=== PATIENT | female | born 1960 | race Caucasian/White ===

== ENCOUNTER 2018-12-18 05:37 | Outpatient (CLI) | payer BC ==
[~2018-12-18] VITALS: Ht 162.6 cm; Wt 88.5 kg
[2018-12-18] MEDS ORDERED: ASCO10006 PO (10:15)
[2018-12-18] MEDS ORDERED: OMG1KC PO (10:15)
[2018-12-18] MEDS ORDERED: MV-M1TAB20 PO (10:15)
[2018-12-18] MEDS ORDERED: ALPR0.254 PO (10:15)
[2018-12-18] MEDS ORDERED: LISI10TA2 PO (10:15)
[2018-12-18] MEDS ORDERED: CETI10TA4 PO (10:15)
[2018-12-18] MEDS ORDERED: GARL10002 PO (10:15)
[2018-12-18] MEDS ORDERED: CINN500C2 PO (10:15)
[2018-12-18] MEDS ORDERED: CRAN500T2 PO (10:15)
[2018-12-18] MEDS ORDERED: ASPI-586 PO (10:15)
[2018-12-18] MEDS ORDERED: MULT-141 PO (10:15)
[2018-12-18] MEDS ORDERED: METO-333 PO (10:15)
[2018-12-18] MEDS ORDERED: PARO20TA5 PO (10:15)
[2018-12-18] MEDS ORDERED: PSEU30TA35 PO (10:15)
== END 2018-12-18 10:24 | disposition home or self-care (01) ==
LOC: PREOP 05:37
PROVIDERS: ATTEND Surgery
DX: Z01.818 Encounter for other preprocedural examination (principal)

== ENCOUNTER 2018-12-24 06:55 | Day surgery (SDC) | payer BC ==
[~2018-12-24] VITALS: Ht 162.6 cm; Wt 88.5 kg
[~2018-12-24 06:55] MED LIST: ALPR0.254 PO; ASCO10006 PO; ASPI-586 PO; CETI10TA4 PO; CINN500C2 PO; CRAN500T2 PO; GARL10002 PO; LISI10TA2 PO; METO-333 PO; MULT-141 PO; MV-M1TAB20 PO; OMG1KC PO; PARO20TA5 PO; PSEU30TA35 PO
[2018-12-24] MEDS: LACTATED RINGERS 1,000 ML IV PRN ×3 (07:20→11:13)
[2018-12-24 07:28] LABS: BASOPHILS # (AUTO) 0.1 10^3/uL (0.0-0.1); BASOPHILS % (AUTO) 1 % (0-10); EOSINOPHILS # (AUTO) 0.2 10^3/uL (0.0-0.3); EOSINOPHILS % (AUTO) 3 % (0-10); HEMATOCRIT 41 % (35-52); HEMOGLOBIN 13.6 G/DL (11.5-16.0); LYMPHOCYTES # (AUTO) 1.9 X 10^3 (1.0-4.0); LYMPHOCYTES % (AUTO) 23 % (12-44); MEAN CORPUSCULAR HEMOGLOBIN 30 PG (25-34); MEAN CORPUSCULAR HGB CONC 33 G/DL (32-36); MEAN CORPUSCULAR VOLUME 92 FL (80-99); MONOCYTES # (AUTO) 0.7 X 10^3 (0.0-1.0); MONOCYTES % (AUTO) 9 % (0-12); NEUTROPHILS # (AUTO) 5.5 X 10^3 (1.8-7.8); NEUTROPHILS % (AUTO) 66 % (42-75); PLATELET COUNT 207 10^3/uL (130-400); RED CELL DISTRIBUTION WIDTH 13.9 % (10.0-14.5); WHITE BLOOD COUNT 8.4 10^3/uL (4.3-11.0)
[2018-12-24 07:30] VITALS: BP 144/91
[2018-12-24] MEDS ORDERED: ceFAZolin 2 GM IV Premixed 50 ML IV ONE (07:30)
[2018-12-24] MEDS ORDERED: proPOfol 200 MG/20 ML (DIPRIVAN) VIAL IV ONE (07:31)
[2018-12-24] MEDS ORDERED: ROCURONIUM 10 MG/ML 5 ML SYRINGE IV ONE ×2 (07:31→10:05)
[2018-12-24] MEDS ORDERED: LIDOCAINE PF 2% 5 ML (XYLOCAINE) VIAL ONE (07:31)
[2018-12-24] MEDS ORDERED: ONDANSETRON 4 MG/2 ML (SDV) Z0FRAN ONE (07:31)
[2018-12-24] MEDS ORDERED: SEVOFLURANE (ULTANE) 15 ML INHAL SOLN ONE ×7 (07:31→11:20)
[2018-12-24] MEDS ORDERED: DEXAMETHASONE 10 MG/ML (DECADRON) 1 ML VIAL ONE (07:31)
[2018-12-24] MEDS ORDERED: BUP/EPI 0.5% 1:200,000 (SENSORCAINE) 30 ML VIAL ONE (07:32)
[2018-12-24] MEDS ORDERED: MIDAZOLAM 2 MG/2 ML (VERSED) VIAL ONE (07:32)
[2018-12-24] MEDS ORDERED: fentaNYL INJECTION 100 MCG/2 ML AMP ONE ×2 (07:32→10:33)
[2018-12-24] MEDS ORDERED: NEOSTIGMINE 1 MG/ML 5 ML SYRINGE ONE (07:42)
[2018-12-24] MEDS ORDERED: GLYCOPYRROLATE 0.2 MG/ML (ROBINUL) 2 ML VIAL ONE ×2 (07:42→10:44)
[2018-12-24] MEDS ORDERED: CATHETER FLUSH 10 ML SYR IV PRN (07:45)
--- NOTE | 2018-12-24 08:19 | Progress Note-Pre Operative ---
Pre-Operative Progress Note H&P Reviewed The H&P was reviewed, patient examined and no changes noted. Date Seen by Provider: Dec 24, 2018 Time Seen by Provider: 08:15 Date H&P Reviewed: Dec 24, 2018 Time H&P Reviewed: 08:10 Pre-Operative Diagnosis: Symptomatic recurrent incisional hernia OMAR LINDSEY APRN Dec 24, 2018 08:19
[2018-12-24] MEDS ORDERED: HYDR-3816 PO (08:21)
--- NOTE | 2018-12-24 08:22 | Discharge Inst-Surgical ---
D/C Lap Instructions-KIDO New, Converted, or Re-Newed RX: RX on Chart Follow Up Appt in 2 weeks Activity as tolerated No driving for 24 hours No driving while on pain medications Incentive Spirometry use every 2 hours while awake Regular Diet Symptoms to Report: Fever over 101 degree F, Nausea/Vomiting Infection Signs and Symptoms to report: Increased redness, Foul odor of wound, Increased drainage Bathing instructions: May shower Operative Area Clean/Dry; Keep incision clean/dry If any problems/questions: Contact your physician or go to Emergency Room OMAR LINDSEY APRN Dec 24, 2018 08:22
[2018-12-24] MEDS ORDERED: HYDROcodone/APAP 5 MG/325 MG (LORTAB) TAB PO ONE ×2 (08:30→14:30)
[2018-12-24] MEDS ORDERED: ACETAMINOPHEN 325 MG TABLET PO PRN (08:30)
[2018-12-24] MEDS ORDERED: morphine INJ 10 MG/ML 1ML (SYR OR VIAL) IVP PRN (08:30)
[2018-12-24] MEDS ORDERED: ONDANSETRON 4 MG/2 ML (SDV) Z0FRAN IVP PRN ×2 (08:30→11:15)
[2018-12-24] MEDS ORDERED: ROPIVACAINE 5MG/ML 30ML VIAL ONE (09:29)
[2018-12-24] MEDS ORDERED: HYDROmorphone 2 MG/ML VIAL (DILAUDID) ONE (10:18)
--- NOTE | 2018-12-24 10:39 | Progress Note-Post Operative ---
Post-Operative Progess Note Surgeon (s)/Fuel Dock Attendant (s) Surgeon KARSTEN SCHMITZ MD Fuel Dock Attendant: manpreet ochoa [employer] Pre-Operative Diagnosis Symptomatic recurrent incisional hernia Post-Operative Diagnosis same with mesh within hernia sac Procedure & Operative Findings Date of Procedure 12/24/18 Procedure Performed/Findings explantation mesh, open repair ventral abdominal incisional hernia with mesh. Anesthesia Type get Estimated Blood Loss Estimated blood loss (mL): minimal Specimens/Packing Specimens Removed hernia sac KARSTEN SCHMITZ MD Dec 24, 2018 10:39
[2018-12-24] MEDS ORDERED: HYDROmorphone 2 MG/ML VIAL (DILAUDID) IV ONE (11:15)
[2018-12-24 12:20] VITALS: BP 136/79
[2018-12-24 12:50] VITALS: BP 118/62
--- NOTE | 2018-12-24 12:52 | OPERATIVE REPORT ---
DATE OF SERVICE: 12/24/2018 ATTENDING PRIMARY CARE PHYSICIAN: Dr. Chadd Negrete. PREOPERATIVE DIAGNOSIS: Recurrent ventral abdominal incisional hernia. POSTOPERATIVE DIAGNOSIS: Recurrent ventral abdominal incisional hernia with previous mesh comprising the hernia sac. PROCEDURE: Explantation of mesh repair of recurrent ventral abdominal incisional hernia with mesh. SURGEON: Sridhar Schmitz MD CLINICAL EDUCATION CONSULTANT: George Palma APRN ANESTHESIA: General endotracheal. ESTIMATED BLOOD LOSS: Minimal. FINDINGS: Significant size hernia, which was composed of a peritoneal lining as well as the previously placed mesh. We underwent explantation of the mesh, which appeared to be 6 to 8 cm round mesh. We then proceeded to repair the fascial defect, which was approximately 6 cm in size with a 16 x 11 cm mesh, which was coated on the underside. DISPOSITION: The patient tolerated the procedure well. INDICATIONS: The patient is a 58-year-old female referred over to us for recurrent ventral abdominal recurrent incisional hernia. She underwent cholecystectomy laparoscopically and then developed an umbilical hernia, which was then repaired primarily. Four years later, she had reoccurrence of hernia and then underwent an incisional hernia repair with mesh. She reports that she had recurrent pain and a bulge, which grew larger in size over time. She was seen in the office and found to have a recurrent ventral abdominal incisional hernia. The abdomen was prepped and draped in standard surgical fashion. A 0.5% Marcaine with epinephrine was used to anesthetize the overlying skin to the lesion. DESCRIPTION OF PROCEDURE: A vertical skin incision was then made using a 15 blade. A hard hernia sac was identified and after further dissection, the hernia was comprised of the mesh. We then proceeded with meticulous dissection of the entire mesh preserving as much fascia as possible using electrocautery as well as Metzenbaum scissors. Once the peritoneal lining was identified, this was opened using Metzenbaum scissors and the remainder of the mesh was removed under direct visualization using electrocautery with visualization of good hemostasis. Once the hernia sac and mesh were excised, the defect measured approximately 6 cm in the largest dimension. A 16 x 11 cm coated polypropylene mesh was then placed into the defect. We then proceeded to place transfascial sutures concentrically around the mesh using 0 Prolene in a horizontal mattress style. We then proceeded with transfascial sutures concentrically around the mesh to the fascia using the same 0 Prolene interrupted sutures. The base of the umbilicus was then imbricated to the mesh and the subcutaneous tissue was then reapproximated using 3-0 Vicryl interrupted sutures. Skin was closed using 4-0 Monocryl running subcuticular suture. Wound was then cleaned and covered with tonsil sponges, followed by Op-Site, followed by an abdominal binder. The patient tolerated the procedure well. We will start IV normal pain medication as well as a clear liquid diet. Once she is tolerating clears, has good pain control with oral pain medications, ambulating well, we will discharge her home. She will be instructed to do no heavy lifting or exertion for the next six weeks and to wear the abdominal binder at all times even at night for the next two weeks. Job ID: [id number] DocumentID: [id number] Dictated Date: 12/24/2018 10:26:26 Improvement Spec Date: 12/24/2018 12:52:00 Dictated By: SRIDHAR SCHMITZ MD
--- NOTE | 2018-12-24 13:11 | Anesthesia-General Post-Op ---
General Patient Condition Mental Status/LOC: Same as Preop Cardiovascular: Satisfactory Nausea/Vomiting: Absent Respiratory: Satisfactory Pain: Controlled Complications: Absent Post Op Complications Complications None Follow Up Care/Instructions Patient Instructions None needed. Anesthesia/Patient Condition Patient Condition Patient is doing well, no complaints, stable vital signs, no apparent adverse anesthesia problems. No complications reported per nursing. ALMAS DENT CRNA Dec 24, 2018 13:11
[2018-12-24] MEDS ORDERED: HYDROcodone/APAP 5 MG/325 MG (LORTAB) TAB ONE ×2 (13:18→14:14)
[2018-12-24 13:20] VITALS: BP 118/60
[2018-12-24 14:15] VITALS: BP 118/60
== END 2018-12-24 14:30 | disposition home or self-care (01) ==
LOC: SDC 06:55
PROVIDERS: ATTEND Surgery
DX: K43.2 Incisional hernia without obstruction or gangrene (principal); I10 Essential (primary) hypertension; G47.33 Obstructive sleep apnea (adult) (pediatric); F41.9 Anxiety disorder, unspecified; Z79.82 Long term (current) use of aspirin; Z79.899 Other long term (current) drug therapy; Z87.891 Personal history of nicotine dependence; Z99.89 Dependence on other enabling machines and devices
CPT/HCPCS: 36415; 85025; 87081; 94664

== ENCOUNTER → 2018-12-29 | Outpatient (CLI) | payer BC ==
[~2018-12-29] MED LIST changes: +HYDR-3816 PO
--- NOTE | 2018-12-29 17:07 | Diagnostic Imaging Report ---
INDICATION: Shortness of breath EXAM: PA and lateral views of the chest were obtained at 4:48 hours p.m. FINDINGS: The heart and mediastinal silhouette are normal in appearance. There are linear opacities in both lung bases which are most likely due to atelectatic change versus scarring. There are no prior studies available for comparison. There is no pleural fluid or pneumothorax. IMPRESSION: Linear opacities in both lung bases are present which are most likely secondary to atelectatic change or chronic scarring. No pneumothorax or pleural fluid. Dictated by: Dictated on workstation # [id number]
== END ==
LOC: RAD FS 16:41
PROVIDERS: ATTEND Surgery
DX: R06.02 Shortness of breath (principal); R91.8 Other nonspecific abnormal finding of lung field
CPT/HCPCS: 71046

== ENCOUNTER → 2019-05-06 | Outpatient (CLI) | payer BC ==
--- NOTE | 2019-05-06 11:13 | Diagnostic Imaging Report ---
INDICATION: Wrist pain COMPARISON: None. FINDINGS: 3 views of the right wrist demonstrate no acute fracture or dislocation. There are no focal osseous lesions. No avascular necrosis is seen. The visualized soft tissue structures are unremarkable. The pronator fat pad is not displaced. There are no radio opaque foreign bodies. IMPRESSION: 1. No acute fracture or dislocation in the right wrist. Dictated by: Dictated on workstation # [id number]
== END ==
LOC: RAD FS 10:40
PROVIDERS: ATTEND Nurse Practitioner
DX: M65.4 Radial styloid tenosynovitis [de Quervain] (principal)
CPT/HCPCS: 73110

== ENCOUNTER 2019-11-30 16:46 | Emergency (ER) | payer OTHER, BC ==
[~2019-11-30] VITALS: Ht 163 cm; Wt 88.9 kg
[~2019-11-30 16:46] MED LIST changes: +HYDR-34 PO; -HYDR-3816 PO
[2019-11-30] MEDS ORDERED: RT-ALBUTEROL/IPRATROPIUM 3 ML (DUONEB) VIAL INH ONE (17:00)
[2019-11-30] MEDS ORDERED: predniSONE 10 MG TAB PO ONE (17:00)
--- NOTE | 2019-11-30 17:04 | ED Respiratory ---
General Chief Complaint: Respiratory Problems Stated Complaint: TROUBLE BREATHING DUE TO CLEANING PRODUCT Source: patient Exam Limitations: no limitations History of Present Illness Date Seen by Provider: Nov 30, 2019 Time Seen by Provider: 16:48 Initial Comments The patient is a pleasant 59-year-old female who presents for evaluation of shortness of breath after using a cleaning product. 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 She says after spraying it she felt like she was having a hard time breathing and she started to cough. Upon arrival in the emergency department she is saturating 100% on room air and appears to be breathing normally. She denies any history of asthma, COPD, or any other pulmonary problems. She is not uses cleaning product previously. She is alert and oriented 4, calm, and appears to be in no distress at this time. She denies having any symptoms prior to using the cleaning product. Timing/Duration: just prior to arrival Severity: mild Prior Episodes/Possible Cause: no prior episodes Associated Symptoms: cough, shortness of breath Allergies and Home Medications Allergies Coded Allergies: No Known Drug Allergies (Unverified , 12/18/18) Home Medications Alprazolam 0.25 Mg Tablet, 0.25 MG PO BID PRN for ANXIETY, (Reported) Ascorbic Acid 1,000 Mg Tablet, 1,000 MG PO DAILY, (Reported) Aspirin 81 Mg Tablet.dr, 81 MG PO DAILY, (Reported) Cetirizine HCl 10 Mg Tablet, 10 MG PO DAILY, (Reported) Cinnamon Bark 500 Mg Capsule, 500 MG PO DAILY, (Reported) Cranberry Extract 500 Mg Tablet, 500 MG PO DAILY, (Reported) Garlic 1,000 Mg Capsule, 1,000 MG PO DAILY, (Reported) Hydrocodone Bit/Acetaminophen 1 Each Tablet, 1-2 TAB PO Q4H Prescribed by: OMAR LINDSEY on 12/24/18 0821 Lisinopril 10 Mg Tablet, 10 MG PO DAILY, (Reported) Metoprolol Tartrate 25 Mg Tablet, 25 MG PO BID, (Reported) Multivit with Calcium,Iron,Min 1 Each Tablet, 1 EACH PO DAILY, (Reported) Mv-Mn/Iron/FA/Herbal Cmplx#190 1 Each Tablet, 1 EACH PO DAILY, (Reported) [place] 3 Polyunsat Fatty Acids 1,000 Mg Cap, 1,000 MG PO DAILY, (Reported) Paroxetine HCl 20 Mg Tablet, 20 MG PO DAILY, (Reported) Pseudoephedrine HCl 30 Mg Tablet, 30 MG PO DAILY PRN for allergies, (Reported) Patient Home Medication List Home Medication List Reviewed: Yes Review of Systems Review of Systems Constitutional: no symptoms reported EENTM: no symptoms reported Respiratory: cough, short of breath Cardiovascular: no symptoms reported Gastrointestinal: no symptoms reported Genitourinary: no symptoms reported Musculoskeletal: no symptoms reported Skin: no symptoms reported Psychiatric/Neurological: No Symptoms Reported Hematologic/Lymphatic: No Symptoms Reported Immunological/Allergic: no symptoms reported All Other Systems Reviewed Negative Unless Noted: Yes Past Hmleamw-Rsavcr-Tzuywd Hx Past Med/Social Hx: Reviewed Nursing Past Med/Soc Hx Patient Social History Alcohol Use: Denies Use Recreational Drug Use: No Smoking Status: Former Smoker Former Smoker, Quit: Dec 18, 2010 2nd Hand Smoke Exposure: No Recent Foreign Travel: No Contact w/Someone Who Travel: No Recent Hopitalizations: No Seasonal Allergies Seasonal Allergies: Yes Past Medical History Surgeries: Yes (umb hernia, incisional hernia, bilat CTR, bilat RCR, bilat thumb, R knee sc) Section, Gallbladder, Hysterectomy Respiratory: Yes Sleep Apnea Currently Using CPAP: Yes Cardiac: Yes Hypertension Neurological: No NEUROPSYCHOLOGIST History: Hysterectomy Genitourinary: No Gastrointestinal: Yes Abdominal Hernia, Chronic Constipation, Chronic Diarrhea Musculoskeletal: Yes Chronic Back Pain Endocrine: No HEENT: Yes (broken teeth) Cataract Cancer: No Psychosocial: No Integumentary: No Blood Disorders: No Physical Exam Vital Signs - First Documented 11/30/19 16:52 Temp 36.8 Pulse 73 Resp 18 B/P (MAP) 147/87 (107) Pulse Ox 94 Capillary Refill : Height: 5'4.00" Weight: 195lbs. 0.0oz. 88.882748sd; 33.5 BMI Method: General Appearance: WD/WN, no apparent distress Eyes: Bilateral Eye Normal Inspection, Bilateral Eye PERRL, Bilateral Eye EOMI HEENT: PERRL/EOMI, normal ENT inspection, TMs normal, pharynx normal Neck: non-tender, full range of motion, supple Respiratory: chest non-tender, lungs clear, normal breath sounds, no respiratory distress, no accessory muscle use Cardiovascular: regular rate, rhythm, no edema, no JVD Gastrointestinal: normal bowel sounds, non tender, soft Extremities: normal range of motion, non-tender, no pedal edema Neurologic/Psychiatric: sample finisher II-XII nml as tested, no motor/sensory deficits, alert, normal mood/affect, oriented x 3 Skin: normal color, warm/dry Progress/Results/Core Measures Suspected Sepsis SIRS Temperature: Pulse: Respiratory Rate: Blood Pressure / Mean: Results/Orders My Orders Orders - SUDHA STEPHENS DO Albuterol/Ipra Inhalation Soln (Duoneb I (11/30/19 17:00) Svn Small Volume Nebulizer (11/30/19 16:57) Chest 1 View Ap/Pa Only (11/30/19 16:57) Prednisone Tablet (Deltasone Tablet) (11/30/19 17:00) Medications Given in ED Current Medications Medications Dose Ordered Sig/Mitch Route Start Time Stop Time Status Last Admin Dose Admin Albuterol/ Ipratropium 3 ml ONCE ONCE INH 11/30/19 17:00 11/30/19 17:01 DC 11/30/19 17:10 3 ML Prednisone 40 mg ONCE ONCE PO 11/30/19 17:00 11/30/19 17:01 DC 11/30/19 17:10 40 MG Vital Signs/I&O 11/30/19 16:52 Temp 36.8 Pulse 73 Resp 18 B/P (MAP) 147/87 (107) Pulse Ox 94 Capillary Refill : Progress Note : Progress Note @1742 - the patient states she is feeling much better after the breathing treatment and has no complaints. She is asking to be discharged home. Advised the patient to follow up with her PCP in the next 1-2 days, to use the prescribed medications as directed, and to return to the emergency Department immediately for difficulty breathing, new or worsening symptoms. Diagnostic Imaging Diagonstic Imaging: Xray Comments [facility], [place] NAME: IVETTE BALL [facility] REC#: [id number] PT STATUS: REG ER : 1960 PHYSICIAN: SUDHA STEPHENS DO ADMIT DATE: 11/30/19/ER FS Draft Date of Exam:11/30/19 CHEST 1 VIEW AP/PA ONLY INDICATION: Shortness of air, difficulty breathing. TIME OF EXAM: 5:06 p.m. COMPARISON: Comparison is made with prior chest from 12/29/2018. FINDINGS: Heart size is normal. There are linear regions of parenchymal density in the lung bases, consistent with scarring or atelectasis. No infiltrate is seen. There is no effusion or pneumothorax. The pulmonary vascularity is normal. IMPRESSION: Bibasilar scarring or subsegmental atelectasis. Dictated on workstation # [id number] Dict: 11/30/19 1710 Trans: 11/30/19 1731 [id number] Interpreted by: ZARA MELISSA MD Electronically signed by: Departure Impression Primary Impression: Bronchospasm Additional Impression: Exposure to chemical irritant Disposition: HOME, SELF-CARE Condition: Stable Departure-Patient Inst. Decision time for Depature: 17:43 Referrals: BAO ARENAS MD (PCP/Family) Primary Care Physician Patient Instructions: BRONCHOSPASM-ADULT Add. Discharge Instructions: Take the prescribed medicines as directed. Follow-up with your doctor in the next 1-2 days. Return to the Emergency Department immediately for new or worsening symptoms. Scripts Albuterol Sulfate (PROAIR HFA) 1 Puff Puff 2 PUFF IH Q4H PRN for DYSPNEA for 10 Days, #1 PUFF 1 PUFF = 90 MCG Prov: SUDHA STEPHENS DO 11/30/19 Prednisone (Prednisone) 20 Mg Tab 40 MG PO DAILY for 5 Days, #10 TAB 0 Refills Prov: SUDHA STEPHENS DO 11/30/19 SUDHA STEPHENS DO Nov 30, 2019 17:04
--- NOTE | 2019-11-30 17:31 | Diagnostic Imaging Report ---
INDICATION: Shortness of air, difficulty breathing. TIME OF EXAM: 5:06 p.m. COMPARISON: Comparison is made with prior chest from 12/29/2018. FINDINGS: Heart size is normal. There are linear regions of parenchymal density in the lung bases, consistent with scarring or atelectasis. No infiltrate is seen. There is no effusion or pneumothorax. The pulmonary vascularity is normal. IMPRESSION: Bibasilar scarring or subsegmental atelectasis. Dictated by: Dictated on workstation # [id number]
[2019-11-30] MEDS ORDERED: PRD20T PO (17:50)
[2019-11-30] MEDS ORDERED: RT-ALBUINH IH (17:50)
[2019-11-30 17:59] VITALS: BP 147/87
--- OUTSIDE RECORDS SUMMARY | 2019-11-30 19:16 | XMS REPORT | Continuity of Care Document ---
Author Organization Unknown Address Unknown Phone Unavailable Allergies Active Description Code Type Severity Reaction Onset Reported/Identified Relationship to Patient Clinical Status Yes No Known Drug Allergies [id number] Drug Allergy Unknown N/A 12/18/2018 Medications There is no data. 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 12/24/2018 KARSTEN SCHMITZ MD Ot Z79.89 9 OTHER LONGTERM (CURRENT) DRUG THERAPY 12/24/2018 KARSTEN SCHMITZ MD Ot Z87.89 1 PERSONAL HISTORY OF NICOTINE DEPENDENCE 12/24/2018 KARSTEN SCHMITZ MD Ot Z99.89 DEPENDENCE ON OTHER ENABLING MACHINES AN 12/25/2018 KARSTEN SCHMITZ MD, Ot F41.9 ANXIETY DISORDER, UNSPECIFIED 12/25/2018 KARSTEN SCHMITZ MD, Ot G47.33 OBSTRUCTIVE SLEEP APNEA (ADULT) (PEDIATR 12/25/2018 KARSTEN SCHMITZ MD Ot I10 ESSENTIAL (PRIMARY) HYPERTENSION 12/25/2018 KARSTEN SCHMITZ MD Ot K43.2 INCISIONAL HERNIA WITHOUT OBSTRUCTION OR 12/25/2018 KARSTEN SCHMITZ MD Ot 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 12/25/2018 KARSTEN SCHMITZ MD Ot Z79.89 9 OTHER LONGTERM (CURRENT) DRUG THERAPY 12/25/2018 KARSTEN SCHMITZ MD, Ot Z87.89 1 PERSONAL HISTORY OF NICOTINE DEPENDENCE 12/25/2018 KARSTEN SCHMITZ MD Ot Z99.89 DEPENDENCE ON OTHER ENABLING MACHINES AN 12/29/2018 KARSTEN SCHMITZ MD Ot F41.9 ANXIETY DISORDER, UNSPECIFIED 12/29/2018 KARSTEN SCHMITZ MD, Ot G47.33 OBSTRUCTIVE SLEEP APNEA (ADULT) (PEDIATR 12/29/2018 KARSTEN SCHMITZ MD Ot I10 ESSENTIAL (PRIMARY) HYPERTENSION 12/29/2018 KARSTEN SCHMITZ MD, Ot K43.2 INCISIONAL HERNIA WITHOUT OBSTRUCTION OR 12/29/2018 KARSTEN SCHMITZ MD, Ot 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 12/29/2018 KARSTEN SCHMITZ MD Ot Z79.89 9 OTHER BARN OPERATOR (CURRENT) DRUG THERAPY 12/29/2018 KARSTEN SCHMITZ MD, Ot Z87.89 1 PERSONAL HISTORY OF NICOTINE DEPENDENCE 12/29/2018 KARSTEN SCHMITZ MD Ot Z99.89 DEPENDENCE ON OTHER ENABLING MACHINES AN 12/30/2018 KARSTEN SCHMITZ MD Ot R06.02 SHORTNESS OF BREATH 12/30/2018 KARSTEN SCHMITZ MD Ot R91.8 OTHER NONSPECIFIC ABNORMAL FINDING OF LUIZA 01/13/2019 KARSTEN SCHMITZ MD Ot R06.02 SHORTNESS OF BREATH 01/13/2019 KARSTEN SCHMITZ MD Ot R91.8 OTHER NONSPECIFIC ABNORMAL FINDING OF LUIZA 05/11/2019 MAYKEL BRUMFIELD [facility] Ot 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 Results Test Result Range Methicillin resistant Staphylococcus aur eus (MRSA) screening culture - 12/24/18 07:12 Methicillin resistant Staphylococcus aureus (MRSA) scr eening culture NEG NRG Complete blood count (CBC) with automate d white blood cell (WBC) differential - 12/24/18 07:20 Blood leukocytes automated count (number/volume) 8.4 10*3/uL 4.3-11.0 Blood erythrocytes automated count (number/volume) 4.51 10*6/uL 4.35-5.85 Venous blood hemoglobin measurement (mass/volume) 13.6 g/dL 11.5-16.0 Blood hematocrit (volume fraction) 41 % 35-52 Automated erythrocyte mean corpuscular volume 92 [ foz_us] 80-99 Automated erythrocyte mean corpuscular h emoglobin (mass per erythrocyte) 30 pg 25-34 Automated erythrocyte mean corpuscular h emoglobin concentration measurement (mass/volume) 33 g/dL 32-36 Automated erythrocyte distribution width ratio 13. 9 % 10.0- 14.5 Automated blood platelet count (count/volume) 207 10*3/uL 130-400 Automated blood platelet mean volume measurement 11.0 [foz_us] 7.4-10.4 Automated blood neutrophils/100 leukocytes 66 % 42-75 Automated blood lymphocytes/100 leukocytes 23 % 12-44 Blood monocytes/100 leukocytes 9 % 0-12 Automated blood eosinophils/100 leukocytes 3 % 0-10 Automated blood basophils/100 leukocytes 1 % 0-10 Blood neutrophils automated count (number/volume) 5.5 10*3 1.8-7.8 Blood lymphocytes automated count (number/volume) 1.9 10*3 1.0-4.0 Blood monocytes automated count (number/volume) 0. 7 10*3 0.0-1.0 Automated eosinophil count 0.2 10*3/uL 0 .0-0.3 Automated blood basophil count (count/volume) 0.1 10*3/uL 0.0-0.1 Encounters ACCT No. Visit Date/Time Discharge Status Pt. Type Provider Facility Loc./Unit Complaint [id number] 05/06/2019 10:40:00 23:59:59 CLS Outpatient MAYKEL BRUMFIELD [facility] RAD FS M65.4 [id number] 12/29/2018 16:41:00 23:59:59 CLS Outpatient KARSTEN SCHMITZ MD [facility] RAD FS CHEST;LATERAL AND PA [id number] 12/24/2018 06:55:00 14:30:00 DIS Outpatient KARSTEN SCHMITZ MD [facility] SDC RECURRENT INCISIONAL HE RNIA [id number] 12/18/2018 05:37:00 10:24:00 DIS Outpatient KARSTEN SCHMITZ MD [facility] PREOP RECURRENT INCISIONAL HE JENNYIA
== END 2019-11-30 18:00 | disposition home or self-care (01) ==
LOC: EDUNIT# 16:46 → ER FS 16:48
DX: T65.891A Toxic effect of other specified substances, accidental (unintentional), initial encounter (principal); J98.01 Acute bronchospasm; G47.30 Sleep apnea, unspecified; I10 Essential (primary) hypertension; Z87.891 Personal history of nicotine dependence; Z90.710 Acquired absence of both cervix and uterus; Y92.512 Supermarket, store or market as the place of occurrence of the external cause; Y99.0 Civilian activity done for income or pay
CPT/HCPCS: 71045

== ENCOUNTER → 2020-05-30 | Outpatient (CLI) | payer BC ==
[~2020-05-30] MED LIST changes: +ASCO100024 PO; -ASCO10006 PO; +PRD20T PO; +RT-ALBUINH IH
--- NOTE | 2020-05-30 12:17 | Diagnostic Imaging Report ---
INDICATION: Left knee pain. COMPARISON: None available. TECHNIQUE: 3 radiographs left knee dated 05/30/2020. FINDINGS: No acute fracture or dislocation. No destructive osseous process. Minimal medial joint space narrowing. Chronic appearing well-corticated fragmentation of the tibial tuberosity. Tiny superior patellar enthesophytes. No joint effusion. No suspicious radiopaque foreign body. IMPRESSION: No acute osseous abnormality with minimal degenerative changes and chronic posttraumatic changes involving the tibial tuberosity. Dictated by: Dictated on workstation # [id number]
== END ==
LOC: RAD FS 10:14
PROVIDERS: ATTEND Nurse Practitioner
DX: M25.562 Pain in left knee (principal)
CPT/HCPCS: 73562

== ENCOUNTER → 2020-06-05 | Outpatient (CLI) | payer BC ==
[~2020-06-05] MED LIST changes: +ALPR.25T PO; -ALPR0.254 PO
--- NOTE | 2020-06-05 17:56 | Diagnostic Imaging Report ---
PROCEDURE: MRI left joint lower extremity without contrast. TECHNIQUE: Multiplanar, multisequence non contrast-enhanced MRI of the left lower extremity was accomplished. INDICATION: Injury, knee pain. FINDINGS: There are no prior MRI examinations available for comparison. The plain film examination of 05/30/2020 noted post traumatic changes involving the tibial tuberosity but failed to show any evidence for an acute bony abnormality. On the proton dense fat-saturated sagittal series of this exam, the post traumatic changes involving the tibial tuberosity are again evident. The attachment of the infrapatellar tendon to the tibia seems to be intact; however, there is an area of abnormal signal involving the attachment of the infrapatellar tendon to the inferior pole of the patella. I suspect that this is secondary to a chronic partial tear. The quadriceps tendon appears to be intact as does the anterior cruciate ligament. The midportion of the posterior cruciate ligament has somewhat of a bulbous appearance, however, and this may be related to a chronic partial tear. There is also a large tear involving much of the posterior horn and root of the medial meniscus. The posterior horn has partially degenerated. The injury to the posterior horn of the medial meniscus has resulted in moderate degenerative disease of the articular surface of the medial femoral condyle. The lateral meniscus seems to be intact. The medial collateral ligament, the fibular collateral ligament, the biceps femoris tendon, the iliotibial band, and the medial and lateral retinacula show no sign of an acute injury. There is no abnormal signal arising from the osseous structures to indicate bone edema or a fracture. There is moderate degenerative disease of the lateral compartment of the knee joint. There is also narrowing of the patellofemoral space laterally with chondromalacia patella grade 2-3. A small joint effusion is present. There is also a small Celeste's cyst. In addition, a small amount of fluid is interposed between the musculature of the posteromedial aspect of the knee joint. This could be related to extravasation of fluid from the suspected Celeste's cyst. IMPRESSION: 1. There are post traumatic changes involving the attachment of the infrapatellar tendon, but the tendon seems to be intact. However, there do appear to be chronic partial tears of the attachment of the infrapatellar tendon to the inferior pole of the patella and to the midportion of the posterior cruciate ligament. The other major ligaments and tendons are intact. 2. The posterior horn and the root of the medial meniscus have been torn and are partially degenerated. The lateral meniscus is intact. 3. There is degenerative disease involving the knee joint with medial compartment and the lateral patellofemoral space the most severely affected. There is no acute bony abnormality noted however. 4. There is a small joint effusion and a small Celeste's cyst. Dictated by: Dictated on workstation # [id number]
== END ==
LOC: RAD 14:00
PROVIDERS: ATTEND Nurse Practitioner
DX: M22.42 Chondromalacia patellae, left knee (principal); M23.232 Derangement of other medial meniscus due to old tear or injury, left knee; M17.12 Unilateral primary osteoarthritis, left knee; M25.462 Effusion, left knee; M71.22 Synovial cyst of popliteal space [Baker], left knee
CPT/HCPCS: 73721